=== PATIENT | male | born 1990 | race Caucasian/White ===

== ENCOUNTER 2022-07-27 19:38 | Emergency (ER) | payer OTHER, SELFPAY ==
[2022-07-27 19:45] VITALS: BP 131/83; PULSE 78; RESP 16; TEMP 36.9; O2SAT 97
--- NOTE | 2022-07-27 19:48 | ED.ANIMALBIT ---
HPI - Animal Bite General Chief Complaint: Wound/Laceration Stated Complaint: Dog Bite on Right Time Seen by Provider: 07/27/22 19:48 Source: patient Mode of arrival: ambulatory Limitations: no limitations History of Present Illness HPI narrative: 32-year-old male, smoker, depression, Status post thoracic surgery after , presents to the ER with a 2 cm laceration on the right palm caused by a dog bite. He owns the dog and his dog is fully vaccinated. no other injuries noted. Up-to-date on tetanus MD complaint: animal bite Onset (ago): minute(s) ( 30 minutes ago) Animal: dog Description of animal: household pet Mechanism: bite Location: other ( right hand) Location - Extremities: Right: hand Context: unprovoked Associated symptoms: none Related Data Patient tetanus UTD: Yes Home Medications Medication Instructions Recorded Confirmed fluoxetine 10 mg capsule 10 mg PO DAILY 07/27/22 07/27/22 Allergies Allergy/AdvReac Type Severity Reaction Status Date / Time codeine Allergy Unknown Verified 07/27/22 19:56 Review of Systems Review of Systems: All systems reviewed & are unremarkable except as noted in HPI and below Constitutional: Constitutional: Reports as per HPI and Reports no additional constitutional complaints Eyes: Eyes: Reports as per HPI and Reports no additional eye complaints ENT: Reports system reviewed and no additional complaints, except as documented and Reports as per HPI Cardiovascular: Cardiovascular: Reports as per HPI and Reports no additional cardiovascular complaints Respiratory: Respiratory: Reports as per HPI, Reports no additional respiratory complaints and Reports cough Gastrointestinal: Gastrointestinal: Reports as per HPI and Reports no additional gastrointestinal complaints Genitourinary: Genitourinary: Reports no additional male genitourinary complaints Musculoskeletal: Musculoskeletal: Reports no additional musculoskeletal complaints Integumentary/Breasts: Skin/Breast: Reports system reviewed and no additional complaints, except as docu Comments: 2 cm laceration over the right palm Neurologic: Reports system reviewed and no additional complaints, except as documented and Reports as per HPI Psychiatric: Psychiatric: Reports no additional psychiatric complaints and Reports as per HPI Endocrine: Endocrine: Reports no additional endocrine complaints and Reports as per HPI Hematologic/Lymphatic: Hematologic/Lymphatic: Reports no additional hematologic/lymphatic complaints and Reports as per HPI Allergic/Immunologic: Allergic/Immunologic: Reports no additional allergic/immunologic complaints and Reports as per HPI [facility] Surgical History Surgical History (Updated 07/27/22 @ 20:07 by Sohan Quintana MD) History of thoracic surgery Social History Social History (Updated 07/27/22 @ 20:07 by Sohan Quintana MD) Social History: smoker Exam Const: General: healthy appearing and no acute distress Nutritional Appearance: well nourished Orientation/consciousness: patient oriented x3 Limitations: no limitations HENMT: Head: normal to inspection Ears: external ears normal Face/Nose/Sinus: Normal external nose present Face and sinus: normal facial exam Throat: posterior oropharynx normal Eyes: Conjunctivae: conjunctivae normal Pupils: Equal, round and reactive pupils present EOM: EOMs intact bilaterally Direct Ophthalmoscopy: no photophobia Neck: Neck: normal visual inspection, no lymphadenopathy and no meningeal signs Chest: Chest palpation & inspection: normal inspection of the chest Resp: Effort & Inspection: normal respiratory effort Auscultation: rhonchi and diminished lung sounds Cardio: Rate: regular rate Rhythm: regular rhythm GI: GI Palp: Yes Soft to palpation Auscultation: normal bowel sounds : General: Yes no CVA tenderness Back/Spine/Pelvis: Back: no CVA tenderness Skin: General skin exam: normal color Other:
[2022-07-27] MEDS: AMOXICILLIN/CLAVULANATE K 875-125 MG TAB 1 TABLET PO (20:08)
[2022-07-27 20:43] VITALS: BP 129/82; PULSE 76; RESP 16; TEMP 36.9; O2SAT 98
== END 2022-07-27 20:45 | disposition home or self-care (01) ==
PROVIDERS: Emergency Provider Internal Medicine Critical Care Medicine; PCP Family Medicine
DX: S60.571A Other superficial bite of hand of right hand, initial encounter (principal); W54.0XXA Bitten by dog, initial encounter; F32.A Depression, unspecified; F17.200 Nicotine dependence, unspecified, uncomplicated
CPT/HCPCS: 99283; A9270